=== PATIENT | female | born 1945 | race Two or more races ===

== ENCOUNTER 2019-04-24 13:09 | Outpatient (CLI) | payer OTHER | END 2019-04-24 15:01 | disposition home or self-care (01) | LOC: MAMO-SONO 13:09 | DX: Z12.31 Encounter for screening mammogram for malignant neoplasm of breast (principal); Z87.898 Personal history of other specified conditions; Z12.39 Encounter for other screening for malignant neoplasm of breast; N60.19 Diffuse cystic mastopathy of unspecified breast ==

== ENCOUNTER 2019-04-27 14:45 | Outpatient (CLI) | payer OTHER | END 2019-04-27 14:47 | disposition home or self-care (01) | LOC: MAMO-SONO 14:45 | DX: N63.20 Unspecified lump in the left breast, unspecified quadrant (principal) ==